=== PATIENT | female | born 1955 | race Caucasian/White ===

== ENCOUNTER 2024-07-28 07:59 | Outpatient (CLI) | payer OTHER, SELFPAY ==
--- NOTE | 2024-07-28 09:57 | P.ANES_ITS ---
Anesthesia Charges Start Date/Time Anesthesia Start Date: 07/28/24 Anesthesia Start Time: 09:14 Stop Date/Time Anesthesia Stop Date: 07/28/24 Anesthesia Stop Time: 09:54 Coding CPT Codes CPT Codes: ANES UPR LWR GI NDSC PX - 35415 ([id number]) P2 - PATIENT W/MILD SYST DISEASE, QX - EMBEDDED HARDWARE ENGINEER SVC W/ MD MED DIRECTION, QK - SOLE MOLDER 2-4 CNCRNT ANES PROC
--- NOTE | 2024-07-28 09:57 | W.ANESCHARGE ---
Anesthesia Charges Start Date/Time Anesthesia Start Date: 07/28/24 Anesthesia Start Time: 09:14 Stop Date/Time Anesthesia Stop Date: 07/28/24 Anesthesia Stop Time: 09:54 Coding CPT Codes CPT Codes: ANES UPR LWR GI NDSC PX - 22978 ([id number]) P2 - PATIENT W/MILD SYST DISEASE, QX - FLEXIBLE SHAFT WINDER SVC W/ MD MED DIRECTION, QK - FURNITURE TECHNICIAN 2-4 CNCRNT ANES PROC
--- NOTE | 2024-07-28 10:26 | P.ANES_ITS ---
Anesthesia Charges Start Date/Time Anesthesia Start Date: 07/28/24 Anesthesia Start Time: 09:14 Stop Date/Time Anesthesia Stop Date: 07/28/24 Anesthesia Stop Time: 09:54 Coding CPT Codes CPT Codes: ANES UPR LWR GI NDSC PX - 61278 ([id number]) QK - TRAFFIC COUNTER 2-4 CNCRNT ANES PROC, QX - ROTARY CUTTER SVC W/ MD MED DIRECTION, P2 - PATIENT W/MILD SYST DISEASE
--- NOTE | 2024-07-28 10:26 | W.ANESCHARGE ---
Anesthesia Charges Start Date/Time Anesthesia Start Date: 07/28/24 Anesthesia Start Time: 09:14 Stop Date/Time Anesthesia Stop Date: 07/28/24 Anesthesia Stop Time: 09:54 Coding CPT Codes CPT Codes: ANES UPR LWR GI NDSC PX - 98251 ([id number]) QK - BAR HOSTESS 2-4 CNCRNT ANES PROC, QX - DISTRICT ATTORNEY SVC W/ MD MED DIRECTION, P2 - PATIENT W/MILD SYST DISEASE
== END 2024-07-28 08:00 | disposition home or self-care (01) ==
LOC: OP CLINIC 08:04
PROVIDERS: Visit Provider Surgery
DX: Z12.11 Encounter for screening for malignant neoplasm of colon (principal); D12.0 Benign neoplasm of cecum; K64.8 Other hemorrhoids; Z83.719 Family history of colon polyps, unspecified; K21.9 Gastro-esophageal reflux disease without esophagitis; K22.89 Other specified disease of esophagus; Z98.890 Other specified postprocedural states
CPT/HCPCS: 00813; 43239; 45380; 45385; 88305; J2371; J2704; J3010